=== PATIENT | male | born 1970 | race Caucasian/White ===

== ENCOUNTER 2020-07-22 21:29 | Emergency (ER) | payer BC, SELFPAY ==
[~2020-07-22] VITALS: Ht 167.6 cm; Wt 77.1 kg
[2020-07-22 22:05] VITALS: BP_SYST 151
--- NOTE | 2020-07-22 22:05 | NUR ---
PT AAO AND AMBULATORY REPORTING WORSENING SOB AND COUGH. PT IS COVID POSITIVE AND GIVES HIMSELF MED NEB TREATMENTS AT HOME. PT CURRENTLY DENIES ANY PAIN.
--- NOTE | 2020-07-22 22:05 | NUR ---
PT TO REMAIN IN ER TENT, NO ER BED CURRENTLY AVAILABLE
--- NOTE | 2020-07-22 23:10 | NUR ---
DR. CASTANO IN TENT TO EVALUATE PT STATUS
[2020-07-23 00:09] LABS: BASOPHILS % (AUTO) 0.4 % (0.0-2.0); EOSINOPHILS % (AUTO) 0.1 % (0.0-4.0); HEMATOCRIT 47.9 % (36-54); HEMOGLOBIN 16.6 g/dL (14.0-18.0); LYMPHOCYTES # (AUTO) 1.6 K/uL (1.0-5.5); LYMPHOCYTES % (AUTO) 23.2 % (20.5-51.5); MEAN CORPUSCULAR HEMOGLOBIN 31 pg (27-31); MEAN CORPUSCULAR HGB CONC 35 % (32-36); MEAN CORPUSCULAR VOLUME 90 fL (79.0-98.0); MONOCYTES # (AUTO) 0.3 K/uL (0.0-1.0); MONOCYTES % (AUTO) 3.6 % (1.7-9.3); NEUTROPHILS % (AUTO) 72.7 % (40.0-70.0); PLATELET COUNT (AUTO) 232 K/uL (130-430); RED BLOOD CELL COUNT(AUTO) 5.34 MIL/uL (4.2-6.2); RED CELL DISTRIBUTION WIDTH 12.9 % (9.0-15.0); WHITE BLOOD COUNT (AUTO) 6.9 K/uL (4.8-10.8)
[2020-07-23 00:25] LABS: CALCIUM 9.1 mg/dL (8.4-11.0); CREATININE 1.22 mg/dL (0.55-1.30); POTASSIUM 3.6 mmol/L (3.5-5.1)
[2020-07-23 00:30] LABS: ALBUMIN 3.7 g/dL (3.4-4.8); TOTAL BILIRUBIN 0.5 mg/dL (0.0-1.0)
[2020-07-23] MEDS ORDERED: LIDOCAINE 1%, 20 ML MDV 20 ML ONE (00:35)
[2020-07-23] MEDS ORDERED: cefTRIAXone 1 GM VIAL ONE (00:35)
[2020-07-23] MEDS: cefTRIAXone 1 GM in LIDOCAINE 1%, 20 ML MDV 2.1 ML IM ONE (00:40)
[2020-07-23] MEDS: NACL 0.9% 1,000 ML IV ONE (00:41)
[2020-07-23] MEDS: cefTRIAXone 1 GM in D5W 50 ML IV ONE (00:43)
[2020-07-23 00:49] VITALS: BP_SYST 150
--- NOTE | 2020-07-23 00:49 | NUR ---
Patient given written and verbal discharge instructions and verbalizes understanding. ER MD CASTANO discussed with patient the results and treatment provided. Patient in stable condition. ID arm band removed. Rx of ZITHROMAX given. Patient educated on pain management and to follow up with PMD. Pain Scale 0/10. Opportunity for questions provided and answered. Medication side effect fact sheet provided.
== END 2020-07-23 00:49 | disposition home or self-care (01) ==
LOC: SED 21:29
DX: U07.1 COVID-19 (principal); J18.9 Pneumonia, unspecified organism; I10 Essential (primary) hypertension
CPT/HCPCS: 36415; 71045; 80053; 83605; 85025; 99284; 96372; J0696; J2001

== ENCOUNTER 2020-07-23 19:11 | Emergency (ER) | payer BC, SELFPAY ==
[~2020-07-23] VITALS: Ht 167.6 cm; Wt 77.1 kg
[2020-07-23 19:45] VITALS: BP_SYST 163
--- NOTE | 2020-07-23 21:47 | NUR ---
ROBSON Savage examining patient.
--- NOTE | 2020-07-24 01:00 | NUR ---
Pt eloped, no further treatment provided. ER aware
== END 2020-07-24 01:00 | disposition left against medical advice (07) ==
LOC: SED 19:11
DX: R06.02 Shortness of breath (principal); I10 Essential (primary) hypertension
CPT/HCPCS: 71045; 99283